=== PATIENT | male | born 1940 | race Caucasian/White ===

== ENCOUNTER 2021-02-01 01:53 | Day surgery (SDC) | payer MEDICARE, SELFPAY ==
[2021-01-23 14:31] VITALS: BMI 25.9
[2021-02-01 08:25] VITALS: BP 148/82; PULSE 74; RESP 18; TEMP 36.6; O2SAT 99
[2021-02-01] MEDS: LACTATED RINGERS 1,000 ML 150 ML IV CONT (08:33)
--- NOTE | 2021-02-01 08:51 | WPDGICN ---
Assessment and Plan Assessment and plan (1) History of colon polyps: Code(s): Z86.010 - Personal history of colonic polyps Status: Acute Assessment and Plan: Patient has had a history of colon polyps on multiple previous colonoscopies. Plan is for surveillance colonoscopy at present. Further recommendations will be given after endoscopy. GI Consult Note Consult date/time: 02/01/21 08:51 HPI: Robbie Mackenzie is a 81 year old male Presents for screening colonoscopy. Patient has a prior history of colon polyps on several occasions. Previously followed by Dr. Win. most recent colonoscopy revealed a relatively large polyp 2019. Family history is noncontributory. Patient denies abdominal pain. He has had no bleeding. Review of Systems Review of Systems: All systems reviewed & are unremarkable except as noted in HPI and below PMFSH Surgical History Surgical History History of hernia surgery Family History Family History Father Patient's father is Sibling Patient's sister is Family history of primary malignant neoplasm of liver Mother Patient's mother is Family history of primary malignant neoplasm of liver Social History Social History Smoking packs per day: 1.5 Smoking cigarettes per day: 30.0 Years smoked: 20 Smoking pack-years: 30.00 Smoking status: Never smoker Second hand tobacco smoke exposure: No Smoking end date: 05/05/01 Alcohol intake: current Drinks per week: 4 Substance use: never Living arrangements: alone Spiritual care concerns: No Meds Home Medications and Allergies Home Medications Medication Instructions Recorded Confirmed Type lisinopril 20 mg tablet 20 mg PO DAILY #90 tablet 07/11/20 02/01/21 Rx pantoprazole 40 mg tablet,delayed 40 mg PO QAM #90 tablet 07/11/20 02/01/21 Rx release Allergies Allergy/AdvReac Type Severity Reaction Status Date / Time No Known Allergies Allergy Verified 02/01/21 08:24 Vital Signs Vital Signs - 24 hr 02/01/21 08:25 Temperature 97.8 F Pulse Rate 74 Respiratory Rate 18 Blood Pressure 148/82 H Pulse Oximetry 99 Exam Narrative: Physical exam reveals patient be alert. Vital signs stable. HEENT exam is unremarkable. Patient is anicteric. Lungs are clear to auscultation and percussion. Heart is without murmur or extra sounds. Abdominal exam bowel sounds are present soft nontender with no organomegaly. Digital external rectal exam is normal.
--- NOTE | 2021-02-01 09:07 | P.PNAN_ITS ---
Anes - Initial Pre Proc Eval Procedure: Operation Date: 02/01/21 09:30 Proposed Procedures p Screening Colonoscopy - Naga Sage MD Date/Time: 02/01/21 09:07 Surgeon: Naga Sage MD Pre Op Diagnosis: Hx of Colon Polyps Patient Data Age: 81 Gender: M Height: 1.75 m Weight: 79.6 kg Last Vital Signs Temp 97.8 F 02/01/21 08:25 Pulse 74 02/01/21 08:25 Resp 18 02/01/21 08:25 BP 148/82 H 02/01/21 08:25 Pulse Ox 99 02/01/21 08:25 Allergies Allergy/AdvReac Type Severity Reaction Status Date / Time No Known Allergies Allergy Verified 02/01/21 08:24 Home Medications Medication Instructions Recorded Confirmed Type lisinopril 20 mg tablet 20 mg PO DAILY #90 tablet 07/11/20 02/01/21 Rx pantoprazole 40 mg tablet,delayed 40 mg PO QAM #90 tablet 07/11/20 02/01/21 Rx release Patient hx anesthesia problems: none Family hx anesthesia problems: none Results Review: All pre-operative results and documents have been reviewed as part of the pre-operative evaluation. REPLACED BY [facility] Past Medical History Medical History (Updated 02/01/21 @ 09:01 by Aftab Carrasco MD) Pure hypercholesterolemia Surgical History Surgical History History of hernia surgery Family History Family History Father Patient's father is Sibling Patient's sister is Family history of primary malignant neoplasm of liver Mother Patient's mother is Family history of primary malignant neoplasm of liver Social History Social History Smoking packs per day: 1.5 Smoking cigarettes per day: 30.0 Years smoked: 20 Smoking pack-years: 30.00 Smoking status: Never smoker Second hand tobacco smoke exposure: No Smoking end date: 05/05/01 Alcohol intake: current Drinks per week: 4 Substance use: never Living arrangements: alone Spiritual care concerns: No Anes - Eval Final PreProcedure Day of Procedure 02/01/21 09:07 Patient weight: overweight Heart: regular rate and rhythm Lungs: clear to auscultation Airway: Mallampati scale class II Neurological: alert and oriented Last oral intake: >/= 8 hours ASA classification: III Emergent: no Anesthetic plan: proceed Anesthesia type and monitoring: general GIVS and standard monitoring Results Review: All pre-operative results and documents have been reviewed as part of the pre-operative evaluation. Informed Consent: The patient's anesthetic plan and its attendant risks and benefits were discussed with the patient/family/POA. Questions were solicited and answers provided to the satisfaction of the patient/family/POA.
[2021-02-01 09:53] VITALS: BP 106/66; PULSE 74; RESP 23; O2SAT 95
[2021-02-01 10:03] VITALS: BP 117/72; PULSE 64; RESP 19; O2SAT 96
[2021-02-01 10:13] VITALS: BP 131/89; PULSE 64; RESP 18; O2SAT 99
== END 2021-02-01 10:43 | disposition home or self-care (01) ==
PROVIDERS: PCP Internal Medicine; Visit Provider Internal Medicine Gastroenterology
PROC: 0DJD8ZZ Inspection of Lower Intestinal Tract, Via Natural or Artificial Opening Endoscopic (ICD-10-PCS; CPT 45378; principal; 2021-02-01 09:30)
DX: Z12.11 Encounter for screening for malignant neoplasm of colon (principal); D12.2 Benign neoplasm of ascending colon; D12.5 Benign neoplasm of sigmoid colon; K64.8 Other hemorrhoids; K57.30 Diverticulosis of large intestine without perforation or abscess without bleeding; E78.00 Pure hypercholesterolemia, unspecified; Z87.891 Personal history of nicotine dependence
CPT/HCPCS: 45385; 88305; J2704; J7120

== ENCOUNTER 2024-04-14 07:09 | Day surgery (SDC) | payer MEDICARE, SELFPAY ==
[2024-02-17 13:27] VITALS: BMI 25.8
[2024-04-05 09:03] VITALS: BMI 25.4
[2024-04-14 07:36] VITALS: BP 153/77; PULSE 77; RESP 15; TEMP 36.3; O2SAT 100
[2024-04-14] MEDS: LACTATED RINGERS 1,000 ML 150 ML IV CONT (07:47)
--- NOTE | 2024-04-14 07:58 | PM.HPGS ---
History of Present Illness History of Present Illness Consent: Risks, benefits, and alternatives have been discussed and questions answered. Patient agrees to proceed with procedure. Chief complaint: Personal HX of Colonic Polyps Narrative: Robbie Mackenzie is a 84 year old male presents for screening colonoscopy. Patient has a history of colon polyps on several previous colonoscopies. 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 Patient reports his bowel habits are normal. He denies abdominal pain. Patient has had no bleeding. Family history is noncontributory. Review of Systems Review of Systems: All systems reviewed & are unremarkable except as noted in HPI and below PMFSH Past Medical History Medical History Pure hypercholesterolemia Surgical History Surgical History History of hernia surgery Family History Family History Father Patient's father is Sibling Patient's sister is Family history of primary malignant neoplasm of liver Mother Patient's mother is Family history of primary malignant neoplasm of liver Social History Social History Smoking packs per day: 1.5 Smoking cigarettes per day: 30.0 Years smoked: 20 Smoking pack-years: 30.00 Smoking status: Former smoker Tobacco type: cigarettes Second hand tobacco smoke exposure: No Smoking end date: 05/05/83 Alcohol intake: current Drinks per week: 5 Alcohol use details: BEER Substance use: never Substance use type: does not use Current Housing: Decline to Answer Concerned About Future Housing: Decline to Answer Difficulty Paying Gas/Electric Bills: Decline to Answer Difficulty Paying for Meds: Decline to Answer Currently Unemployed: Decline to Answer Education: Decline to Answer Difficulty w/ Childcare or Family Care: Decline to Answer Living arrangements: alone Spiritual care concerns: No Meds Home Medications and Allergies Home Medications ?Medication ?Instructions ?Recorded ?Confirmed ?Type lisinopril 20 mg tablet 20 mg PO DAILY #90 tabs 06/27/23 04/14/24 Rx pantoprazole 40 mg tablet,delayed 40 mg PO QAM #90 tabs 06/27/23 04/14/24 Rx release (Protonix) vitamin B complex 1 cap PO DAILY 04/05/24 04/14/24 History Allergies Allergy/AdvReac Type Severity Reaction Status Date / Time No Known Allergies Allergy Verified 04/14/24 07:34 Vital Signs Vital Signs - 24 hr 04/14/24 07:36 Temperature 97.3 F L Pulse Rate 77 Respiratory Rate 15 Blood Pressure 153/77 H Pulse Oximetry 100 Oxygen Delivery Room Air Exam Narrative: Physical exam reveals patient to be alert. Signs stable. HEENT exam is unremarkable. Patient is anicteric. Lungs are clear to auscultation and heart is without murmur or extra sounds. Abdomen bowel sounds are present soft nontender with no organomegaly. Digital external rectal exam is normal. Assessment and Plan Assessment and plan (1) History of colon polyps: Code(s): Z86.010 - Personal history of colon polyps Status: Acute Assessment and Plan: Patient has a history of colon polyps on several previous colonoscopies. Plan for surveillance colonoscopy at 3 year intervals as long as patient remains healthy.
--- NOTE | 2024-04-14 08:58 | WPDANESEPPF ---
Anes - Initial Pre Proc Eval Procedure: Operation Date: 04/14/24 09:15 Proposed Procedures p Diagonostic Colonoscopy - Naga Sage MD Date/Time: 04/14/24 08:58 Surgeon: Naga Sage MD Pre Op Diagnosis: Personal HX of Colonic Polyps Patient Data Age: 84 Gender: M Height: 1.75 m Weight: 79.55 kg Last Vital Signs Temp 36.3 C L 04/14/24 07:36 Pulse 77 04/14/24 07:36 Resp 15 04/14/24 07:36 BP 153/77 H 04/14/24 07:36 Pulse Ox 100 04/14/24 07:36 O2 Del Method Room Air 04/14/24 07:36 Allergies Allergy/AdvReac Type Severity Reaction Status Date / Time No Known Allergies Allergy Verified 04/14/24 07:34 Home Medications ?Medication ?Instructions ?Recorded ?Confirmed ?Type lisinopril 20 mg tablet 20 mg PO DAILY #90 tabs 06/27/23 04/14/24 Rx pantoprazole 40 mg tablet,delayed 40 mg PO QAM #90 tabs 06/27/23 04/14/24 Rx release (Protonix) vitamin B complex 1 cap PO DAILY 04/05/24 04/14/24 History Patient hx anesthesia problems: none Family hx anesthesia problems: none Results Review: All pre-operative results and documents have been reviewed as part of the pre-operative evaluation. [facility] Past Medical History Medical History (Updated 04/14/24 @ 08:58 by Wallace Copeland MD) HTN (hypertension) Pure hypercholesterolemia Surgical History Surgical History History of hernia surgery Family History Family History Father Patient's father is Sibling Patient's sister is Family history of primary malignant neoplasm of liver Mother Patient's mother is Family history of primary malignant neoplasm of liver Social History Social History Smoking packs per day: 1.5 Smoking cigarettes per day: 30.0 Years smoked: 20 Smoking pack-years: 30.00 Smoking status: Former smoker Tobacco type: cigarettes Second hand tobacco smoke exposure: No Smoking end date: 05/05/83 Alcohol intake: current Drinks per week: 5 Alcohol use details: BEER Substance use: never Substance use type: does not use Current Housing: Decline to Answer Concerned About Future Housing: Decline to Answer Difficulty Paying Gas/Electric Bills: Decline to Answer Difficulty Paying for Meds: Decline to Answer Currently Unemployed: Decline to Answer Education: Decline to Answer Difficulty w/ Childcare or Family Care: Decline to Answer Living arrangements: alone Spiritual care concerns: No Anes - Eval Final PreProcedure Day of Procedure 04/14/24 08:58 Patient weight: normal Heart: regular rate and rhythm Lungs: clear to auscultation Airway: Mallampati scale class II Neurological: alert and oriented Last oral intake: >/= 8 hours ASA classification: III Emergent: no Anesthetic plan: proceed Anesthesia type and monitoring: general GIVS and standard monitoring Results Review: All pre-operative results and documents have been reviewed as part of the pre-operative evaluation. Informed Consent: The patient's anesthetic plan and its attendant risks and benefits were discussed with the patient/family/POA. Questions were solicited and answers provided to the satisfaction of the patient/family/POA.
[2024-04-14] MEDS: SIMETHICONE ORAL SUSPENSION 20 MG/0.3 ML 30 ML BOTTLE 0.6 ML IRRIGATION (09:22)
[2024-04-14 09:31] VITALS: BP 98/64; PULSE 75; RESP 16; O2SAT 98
[2024-04-14 09:41] VITALS: BP 111/53; PULSE 72; RESP 16; O2SAT 100
[2024-04-14 09:51] VITALS: BP 109/69; PULSE 66; RESP 18; O2SAT 100
--- NOTE | 2024-04-14 10:01 | WPDANESPN ---
Anes - Prog Note Post-Op Date/Time: 04/14/24 10:01 Cardiovascular status: normal Respiratory status: normal Airway patency: baseline Mental status: baseline Post-Op hydration status: normal Vital Signs: Last Vital Signs Temp 36.3 C L 04/14/24 07:36 Pulse 66 04/14/24 09:51 Resp 18 04/14/24 09:51 BP 109/69 04/14/24 09:51 Pulse Ox 100 04/14/24 09:51 O2 Del Method Room Air 04/14/24 09:51 Pain Score (VAS): 0/10 I/O: Intake & Output 04/13/24 04/14/24 04/14/24 23:59 07:59 15:59 Intake Total 700 Balance 700 Patient Feedback: Patient satisfied with anesthetic care.
== END 2024-04-14 10:08 | disposition home or self-care (01) ==
PROVIDERS: PCP Internal Medicine; Visit Provider Internal Medicine Gastroenterology
PROC: 0DJD8ZZ Inspection of Lower Intestinal Tract, Via Natural or Artificial Opening Endoscopic (ICD-10-PCS; CPT 45378; principal; 2024-04-14 09:15)
DX: Z86.0100 Personal history of colon polyps, unspecified (principal); K57.30 Diverticulosis of large intestine without perforation or abscess without bleeding; K64.8 Other hemorrhoids
CPT/HCPCS: 45378